=== PATIENT | female | born 1975 | race Caucasian/White ===

== ENCOUNTER → 2016-06-11 | Outpatient (CLI) | payer OTHER, SELFPAY ==
[~2016-06-11] MED LIST: CONRAY-43 43% 50ML VIAL (Q9960) As Ordered ONE; LIDOCAINE 1% MDV 20ML VIAL As Ordered ONE; methylPREDNISolone SUSP 40 MG/ML (DEPO-medrol) VIAL (J1030) As Ordered ONE
--- NOTE | 2016-06-11 16:57 | REP ---
LEFT HIP INJECTION: The procedure was performed under the direct supervision of Dr. Carlos. The benefits and risks including, but not limited to pain, infection, bleeding, and anaphylaxis were explained to the patient and informed consent was obtained. The left femoral neck was localized using fluoroscopic guidance. The skin was prepped and draped in a sterile fashion. 1% lidocaine was used as a local anesthetic. Using fluoroscopic guidance a 22-gauge spinal needle was inserted and advanced to the femoral neck. 0.5 mL of Conray-43 was injected to verify placement. 7 mL of a solution containing 5 mL of 1% lidocaine and 2 mL of Depo-Medrol 40 mg was injected. The needle was then removed. The patient tolerated the procedure well and there were no immediate complications. 4 seconds of fluoroscopy time was utilized for this procedure. Reviewed by OTIS Bauer 06/12/2016 07:49 AEdited and Signed by Cole Carlos MD 06/12/2016 01:25 P
== END | disposition home or self-care (01) ==
LOC: M RADPRO 10:26
PROVIDERS: ATTEND Orthopaedic Surgery
DX: M25.552 Pain in left hip (principal); M25.551 Pain in right hip
CPT/HCPCS: 20610; 77002; J1030; Q9960

== ENCOUNTER → 2017-06-25 | Outpatient (CLI) | payer BC | LOC: M WUC 11:33 | DX: M51.36 Other intervertebral disc degeneration, lumbar region (principal); M51.37 Other intervertebral disc degeneration, lumbosacral region | CPT/HCPCS: 72110 ==

== ENCOUNTER → 2020-08-10 | Outpatient (CLI) | payer SELFPAY | LOC: M LABSMTC 08:52 | PROVIDERS: ATTEND Pediatrics | DX: Z20.822 Contact with and (suspected) exposure to COVID-19 (principal) ==